=== PATIENT | male | born 1940 | race Caucasian/White ===

== ENCOUNTER 2024-03-30 10:23 | Day surgery (SDC) | payer MEDICARE, SELFPAY ==
[2024-03-17 10:49] VITALS: BMI 37.6
[2024-03-30 11:43] VITALS: BP 160/85
[2024-03-30 12:44] LABS: Glucose - Point of Care 148 mg/dl (70-99)
--- NOTE | 2024-03-30 13:30 | ITS.CL.PACE ---
Perinatal Educator - Pacemaker Implant
Pacemaker Implant
Procedure Report:
Date of Procedure: March 30, 2024
Patient : [id number]
Procedure: Pacemaker generator change
Indication: Generator at DALI, history of complete heart block
�
Implants:
Pulse Generator: Medtronic; Model# W1 DR ; SN: [id number]
RA Lead: Medtronic; Model# 5076; SN: [id number]
RV Lead: Medtronic; Model# 5076; SN: [id number]
Explanted generator:
Medtronic product number W1 DR serial number [id number] implanted January 2018
�
Of note prior to procedure the patient has a chronically elevated atrial threshold. Atrial lead testing in the lab demonstrated a threshold from prior implant right after implant was relatively normal but has been increasing within the last year.
Threshold here today is stable compared to office check at between 5 and 5.5 at 1.0 ms with some respiratory variation in the threshold. He is underlying sinus rhythm at 60 to 70 bpm with reasonable rate histograms and appropriate atrial lead
sensing of sinus rhythm. The ventricular lead has excellent parameters. We had discussed in the office given his relative age and ability to get likely 6 to 8 years out of current generator we would proceed with generator change only. I did
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
Technique: A time out was performed. The procedure site was identified. The patient was anesthetized by the anesthesia service. Preoperative [ ] was administered. The patient was prepped and draped in the usual fashion. Local anesthetic was applied
to the left prepectoral subcutaneous tissue. A 3 inch incision was made 2.5 inches below the left clavicle. A subcutaneous pocket was created with blunt and sharp dissection and hemostasis controlled with Bovie cautery. The left axillary vein was
accessed within the pocket without difficulty. Hemostasis was excellent. The leads were introduced with 7 Fr hemostatic peel away introducer sheaths. The ventricular lead was placed at the right ventricular apex. The atrial lead was placed
in the right atrial appendage. 10 volt pacing did not capture the diaphragm. The leads were secured to the pectoralis muscle and fascia. The leads were appropriately attached to the device. The pocket was irrigated with antibiotic solution. The
device and leads were placed in the pocket. The incision was closed in three layers with absorbable suture. The estimated blood loss was minimal. There were no complications.��
�
Lead Analysis:
RA lead: P: 1.3 mV; Threshold: 5�5.5 V @1.0�ms; Impedance: 285 ohms.
RV lead: R: 0 mV; Threshold: 1.0 V @ 0.5��ms; Impedance: 361 ohms.
�
Final Programming: DDDR 50 to 130 bpm. Output on the atrial lead was set at 6 at 1.5 ms with base rate of 50 and rate response. The patient had intrinsic tracking of his sinus rates in the 70s and rate histograms were reviewed, as such we lowered
the elevation of the rate response parameter as he likely will not use the atrial lead as much as prior. This was done to extend battery.
�
Conclusion: Dual-chamber pacemaker generator change with pacemaker programming changes as above.
�
Recommendation: Routine post pacemaker care.
�
[2024-03-30 14:12] VITALS: BP 138/50
[2024-03-30 14:15] VITALS: BP 138/48
[2024-03-30 14:30] VITALS: BP 140/55
[2024-03-30 14:45] VITALS: BP 142/60
== END 2024-03-30 15:00 | disposition home or self-care (01) ==
LOC: CATH 10:23
PROVIDERS: ATTENDING PHYSICIAN Internal Medicine Cardiovascular Disease; FAMILY PHYSICIAN Internal Medicine; OTHER PHYSICIAN Internal Medicine Cardiovascular Disease
DX: Z45.010 Encounter for checking and testing of cardiac pacemaker pulse generator [battery] (principal); I44.2 Atrioventricular block, complete; I10 Essential (primary) hypertension; E78.5 Hyperlipidemia, unspecified; M19.90 Unspecified osteoarthritis, unspecified site; E11.9 Type 2 diabetes mellitus without complications; Z79.84 Long term (current) use of oral hypoglycemic drugs; E66.9 Obesity, unspecified; Z68.37 Body mass index [BMI] 37.0-37.9, adult; Z96.653 Presence of artificial knee joint, bilateral
CPT/HCPCS: 33228; 33263; 82962; C1785